=== PATIENT | female | born 1975 | race African-American/Black ===

== ENCOUNTER 2018-03-28 14:31 | Emergency (ER) | payer BC ==
[2018-03-28 14:55] VITALS: BP 143/107
--- NOTE | 2018-03-29 05:18 | EKG REPORT ---
SEVERITY:- ABNORMAL ECG - SINUS RHYTHM LEFT ATRIAL ABNORMALITY : Confirmed by: Merlin Ochoa 29-Mar-2018 05:17:51
== END 2018-03-28 16:03 | disposition left against medical advice (07) ==
LOC: ER 14:31
DX: R42 Dizziness and giddiness (principal); Z53.21 Procedure and treatment not carried out due to patient leaving prior to being seen by health care provider; R07.9 Chest pain, unspecified
CPT/HCPCS: 93005; 93010

== ENCOUNTER 2018-04-22 21:16 | Emergency (ER) | payer OTHER, BC ==
[2018-04-22] MEDS ORDERED: LIDOCAINE 5% (700 MG) TRANSDERMAL ADH..PATCH TP ONE (23:20)
[2018-04-23] MEDS ORDERED: KETOROLAC TROMETHAMINE 60 MG/2 ML SDV IM ONE
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
[2018-04-23 00:57] VITALS: BP 151/90
== END 2018-04-23 00:47 | disposition home or self-care (01) ==
LOC: ER 21:16
DX: M54.41 Lumbago with sciatica, right side (principal); M79.604 Pain in right leg; I10 Essential (primary) hypertension; V87.7XXA Person injured in collision between other specified motor vehicles (traffic), initial encounter; Z79.899 Other long term (current) drug therapy
CPT/HCPCS: 99283; 96372; J1885

== ENCOUNTER 2018-07-14 01:48 | Emergency (ER) | payer BC, OTHER ==
--- NOTE | 2018-07-14 05:06 | ER Document Report ---
ED General - General Chief Complaint: Flu Symptoms Stated Complaint: FEVER/NECK AND LEG PAIN Time Seen by Provider: 07/14/18 04:34 Notes: Patient is a 42-year-old female who presents to the emergency department with a chief complaint of a sore throat, fever of 102.5, aching legs, headache, congestion. Her symptoms started yesterday. She states that she was visited by her nephews and they were sick. She denies difficulty breathing, shortness of breath, nausea, vomiting, or diarrhea. TRAVEL OUTSIDE OF THE [place] IN LAST 30 DAYS: No - Related Data Allergies/Adverse Reactions: latex [Latex] Allergy (Intermediate, Verified 02/03/13 13:12) rash z-pack Allergy (Severe, Uncoded 02/03/13 13:12) very sick Past Medical History - Social History Smoking Status: Unknown if Ever Smoked Family History: Reviewed & Not Pertinent Patient has suicidal ideation: No Patient has homicidal ideation: No - Past Medical History Cardiac Medical History: Reports: Hx Hypertension - takes lisinopril Denies: Hx Coronary Artery Disease, Hx Heart Attack Pulmonary Medical History: Denies: Hx Asthma, Hx Bronchitis, Hx COPD, Hx Pneumonia Neurological Medical History: Denies: Hx Cerebrovascular Accident, Hx Seizures Renal/ Medical History: Denies: Hx Peritoneal Dialysis Musculoskeletal Medical History: Denies Hx Arthritis Past Surgical History: Reports: Hx Tubal Ligation. Denies: Hx Hysterectomy - Immunizations Hx Diphtheria, Pertussis, Tetanus Vaccination: Yes Review of Systems - Review of Systems Notes: REVIEW OF SYSTEMS: CONSTITUTIONAL : See HPI EENT: See HPI CARDIOVASCULAR: Denies chest pain. RESPIRATORY: Denies shortness of breath, cough, congestion, difficulty breathing, or wheezing. GASTROINTESTINAL: Denies nausea, vomiting, and diarrhea. Denies abdominal pain. Denies constipation. GENITOURINARY: Denies difficulty urinating, burning, blood in urine, urgency or frequency. MUSCULOSKELETAL: Denies neck and back pain. Denies joint pain or swelling. SKIN: Denies rash, itchiness, or lesions HEMATOLOGIC : Denies easy bruising or bleeding. LYMPHATIC: Denies swollen, painful, enlarged glands. NEUROLOGICAL: Denies no numbness or tingling denies weakness. Denies headache. Denies altered mental status. Denies alteration in speech. PSYCHIATRIC: Denies stress, anxiety, alteration in sleep patterns, or depression. All other systems reviewed and negative. Physical Exam - Vital signs Vitals: Temp Pulse Resp BP Pulse Ox 100.3 F 104 H 16 126/78 H 100 07/14/18 02:36 07/14/18 02:36 07/14/18 02:36 07/14/18 02:36 07/14/18 02:36 - Notes Notes: PHYSICAL EXAMINATION: GENERAL: Appears well, healthy, well-nourished, no acute distress. HEAD: Normocephalic, atraumatic. EYES: PERRL, conjunctiva normal, all extraocular movements intact, sclera nonicteric ENT: Moist mucous membranes. Tonsillar exudate noted NECK: Supple, no noticeable swelling, redness, rash. Normal range of motion. Anterior cervical lymphadenopathy noted. LUNGS: Equal breath sounds bilaterally and clear to auscultation. No wheezes rales or rhonchi. CARDIOVASCULAR: S1-S2, regular rate, regular rhythm. Radial pulses 2+, normal. ABDOMEN: Normoactive bowel sounds. Soft, nontender, no guarding, no rebound tenderness, and no masses palpated. EXTREMITIES: Normal strength and range of motion, no pitting or edema. No cyanosis. NEUROLOGICAL: Moves all extremities upon command. Strength 5/5 in all extremities. PSYCH: Normal mood, normal affect. SKIN: Warm, dry. No rash, lesions, ulcerations noted. Normal skin turgor. Course - Re-evaluation Re-evalutation: 07/14/18 05:06 Patient will be tested for the flu, and a rapid strep will be done. I do not suspect peritonsillar abscess, Sacha's angina, or any life-threatening etiologies at this time. 07/14/18 05:55 The patient has a negative strep test, she has tonsillar exudate and anterior cervical lymphadenopathy. She also has a fever, which makes me suspect she has a pharyngeal infection. She will be started on amoxicillin. Verbal discharge instructions were given to the patient. They verbalized understanding. They are stable for discharge. - Vital Signs Vital signs: Temp Pulse Resp BP Pulse Ox 98.6 F 86 18 110/71 100 07/14/18 05:45 07/14/18 05:45 07/14/18 05:45 07/14/18 05:45 07/14/18 05:45 Discharge - Discharge Clinical Impression: Pharyngitis Qualifiers: Pharyngitis/tonsillitis etiology: unspecified etiology Qualified Code(s): J02.9 - Acute pharyngitis, unspecified Condition: Stable Disposition: HOME, SELF-CARE Additional Instructions: You were seen in the emergency department today for a fever, sore throat, headache, congestion, and body aches. Your flu test is negative. Although your strep test is negative, you do have signs of pharyngitis. He will be started on amoxicillin for your pharyngitis. Please take your antibiotics as prescribed. Even if you feel better, please continue to take your antibiotics. You may take 1000 mg of Tylenol and 600 mg of Motrin every 6 hours as needed for the pain or fever. You follow-up with your primary care provider in 3-5 days. If you develop shortness of breath, or any symptoms that are worrisome to you, please return to the emergency department. Prescriptions: Amoxicillin Trihydrate [Amoxil 875 mg Tablet] 1 tab PO BID #20 tablet Forms: Return to Work Referrals: SHERINE CANCHOLA FNP-C [Primary Care Provider] - Follow up as needed
[2018-07-14 05:36] LABS: A TYPE INFLUENZA AG NEGATIVE (NEGATIVE); B INFLUENZA AG NEGATIVE (NEGATIVE)
[2018-07-14 05:46] VITALS: BP 110/71
== END 2018-07-14 06:15 | disposition home or self-care (01) ==
LOC: ER 01:48
DX: J02.9 Acute pharyngitis, unspecified (principal); R50.9 Fever, unspecified; M79.604 Pain in right leg; M79.605 Pain in left leg; R51 Headache; R09.81 Nasal congestion; I10 Essential (primary) hypertension; Z79.899 Other long term (current) drug therapy
CPT/HCPCS: 87070; 87804; 87880; 99282

== ENCOUNTER 2019-05-21 03:08 | Emergency (ER) | payer BC, OTHER ==
[2019-05-21] MEDS ORDERED: DIPHENHYDRAMINE HCL 25 MG CAPSULE PO ONE (03:46)
[2019-05-21] MEDS ORDERED: PREDNISONE 20 MG TABLET PO ONE (03:46)
--- NOTE | 2019-05-21 03:54 | ER Document Report ---
ED General - General Chief Complaint: Skin Problem Stated Complaint: FACIAL PAIN Time Seen by Provider: 05/21/19 03:34 Primary Care Provider: SHERINE CANCHOLA FNP-C [Primary Care Provider] - Follow up in 3-5 days Notes: 43 y/o female presents with eye burning/watering and facial skin burning that started 1 hour prior to arrival. Pt states this woke her up from sleep. Pt was started on Tacrolimus to her face recently by her oxygen furnace operator for eczema and used it on her face for first time tonight. Pt states she has used this on other body parts previously without any adverse reaction. Pt states this is the only n ew medications she has taken except one dose of Diflucan which she has taken previously without difficulty. Pt denies dyspnea, lip/tongue/throat swelling, or any facial swelling. Pt states she immediately washed her face with mild improvement in symptoms. TRAVEL OUTSIDE OF THE [place] IN LAST 30 DAYS: No - Related Data Allergies/Adverse Reactions: latex [Latex] Allergy (Intermediate, Verified 05/21/19 03:11) rash z-pack Allergy (Severe, Uncoded 05/21/19 03:11) very sick Home Medications: Tacrolimus ointment Past Medical History - Social History Smoking Status: Never Smoker Frequency of alcohol use: None Drug Abuse: None Family History: Reviewed & Not Pertinent Patient has suicidal ideation: No Patient has homicidal ideation: No - Past Medical History Cardiac Medical History: Reports: Hx Hypertension - takes lisinopril Denies: Hx Coronary Artery Disease, Hx Heart Attack Pulmonary Medical History: Denies: Hx Asthma, Hx Bronchitis, Hx COPD, Hx Pneumonia Neurological Medical History: Denies: Hx Cerebrovascular Accident, Hx Seizures Renal/ Medical History: Denies: Hx Peritoneal Dialysis Musculoskeletal Medical History: Denies Hx Arthritis Past Surgical History: Reports: Hx Tubal Ligation. Denies: Hx Hysterectomy - Immunizations Hx Diphtheria, Pertussis, Tetanus Vaccination: Yes Review of Systems - Review of Systems Notes: Constitutional: Negative for fever. HENT: Negative for sore throat. Eyes: Negative for visual changes. Cardiovascular: Negative for chest pain. Respiratory: Negative for shortness of breath. Gastrointestinal: Negative for abdominal pain, vomiting or diarrhea. Genitourinary: Negative for dysuria. Musculoskeletal: Negative for back pain. Skin: Positive for rash. Neurological: Negative for headaches, weakness or numbness. 10 point ROS negative except as marked above and in HPI. Physical Exam - Vital signs Vitals: Temp Pulse Resp BP Pulse Ox 97.8 F 71 20 112/80 98 05/21/19 03:14 05/21/19 03:14 05/21/19 03:14 05/21/19 03:14 05/21/19 03:14 - Notes Notes: GENERAL: Well-appearing, well-nourished and in no acute distress. HEAD: Atraumatic, normocephalic. EYES: Extraocular movements intact, sclera anicteric, conjunctiva are normal. ENT: No tongue/throat/lip swelling. No muffled voice. Phonation clear. NECK: Normal range of motion, supple without lymphadenopathy or JVD. No stridor. LUNGS: Breath sounds clear to auscultation bilaterally and equal. No wheezes rales or rhonchi. HEART: Regular rate and rhythm without murmurs, rubs or gallops. EXTREMITIES: Normal range of motion, no pitting or edema. No clubbing or cyanosis. NEUROLOGICAL: Cranial nerves II through XII grossly intact. Normal speech, normal gait. PSYCH: Normal mood, normal affect. SKIN: Warm, Dry, normal turgor, no rashes or lesions noted. Course - Re-evaluation Re-evalutation: 05/21/19 43 y/o female presents for eye burning/watering and skin burning that started 1 hour [employer]ENTALLY [employer] TE[employer]. Pt used Tacrolimus for first time on face tonight. No lip/tongue/throat swelling or dyspnea. No stridor. Lungs clear to auscultation bilaterally. Pt given 1 dose of prednisone and benadryl in ER with prescription for prednisone and instructed to take anti-histamine. Return precaution given/discussed. Pt voices understanding and agrees with plan of care. - Vital Signs Vital signs: Temp Pulse Resp BP Pulse Ox 97.8 F 71 20 112/80 98 05/21/19 03:14 05/21/19 03:14 05/21/19 03:14 05/21/19 03:14 05/21/19 03:14 Discharge - Discharge Clinical Impression: Allergic reaction caused by a drug Qualifiers: Encounter type: initial encounter Qualified Code(s): T78.40XA - Allergy, unspecified, initial encounter Condition: Stable Disposition: HOME, SELF-CARE Instructions: Acute Allergic Reaction to Drugs ([facility]) Additional Instructions: Please stop using Tacrolimus. Call your oxygen furnace operator in 3 days. Take prednisone as prescribed and finish all doses. Take anti-histamine, such as Claritin/Zyrtec/Daina/Benadryl as needed for symptoms. Return to ER for any worsening symptoms, including shortness of breath, lip/tongue/throat swelling, facial swelling, or any other symptoms that are concerning to you. Prescriptions: Prednisone [Deltasone 20 mg Tablet] 1 tab PO BID 5 Days #10 tablet Referrals: SHERINE CANCHOLA, MELISSA-C [Primary Care Provider] - Follow up in 3-5 days
[2019-05-21 04:03] VITALS: BP 108/65
== END 2019-05-21 04:02 | disposition home or self-care (01) ==
LOC: ER 03:08
DX: R51 Headache (principal); T45.1X5A Adverse effect of antineoplastic and immunosuppressive drugs, initial encounter; X58.XXXA Exposure to other specified factors, initial encounter; I10 Essential (primary) hypertension; Z91.040 Latex allergy status; Z88.3 Allergy status to other anti-infective agents; Z98.51 Tubal ligation status
CPT/HCPCS: 99283; J7512

== ENCOUNTER 2019-11-26 19:38 | Emergency (ER) | payer BC ==
--- NOTE | 2019-11-26 20:50 | ER Document Report ---
ED General - General Chief Complaint: Anxiety Stated Complaint: ANXIETY Time Seen by Provider: 11/26/19 20:39 Mode of Arrival: Ambulatory Information source: Patient Notes: 4-year-old female presented to ED for complaint of OCD anxiety and panic attack. She states she has a psychiatrist and a therapist. She states she is on THC for her OCD. She states she normally takes other medications as well. She does have a history of OCD anxiety depression reflux and high blood pressure. She states she does have an appointment on Thursday he just needs something to get her through till Thursday. I have spoke with Abiel have a mental health worker she will come and speak with the patient and make recommendations. TRAVEL OUTSIDE OF THE [place] IN LAST 30 DAYS: No - HPI Onset: Other - Several days Onset/Duration: Gradual, Worse Quality of pain: No pain Severity: None Pain Level: Denies Associated symptoms: Other - Panic attack Exacerbated by: Denies Relieved by: Denies Similar symptoms previously: Yes Recently seen / treated by doctor: No - Related Data Allergies/Adverse Reactions: latex [Latex] Allergy (Intermediate, Verified 05/21/19 03:11) rash z-pack Allergy (Severe, Uncoded 05/21/19 03:11) very sick Past Medical History - General Information source: Patient - Social History Smoking Status: Never Smoker Frequency of alcohol use: Social Drug Abuse: None - Uses Marinol Lives with: Family Family History: Reviewed & Not Pertinent Patient has suicidal ideation: No Patient has homicidal ideation: No - Past Medical History Cardiac Medical History: Reports: Hx Hypertension - takes lisinopril Pulmonary Medical History: Reports: None EENT Medical History: Reports: None Neurological Medical History: Reports: None Endocrine Medical History: Reports: None Renal/ Medical History: Reports: None Malignancy Medical History: Reports: None GI Medical History: Reports: Hx Gastroesophageal Reflux Disease Musculoskeletal Medical History: Reports None Skin Medical History: Reports None Psychiatric Medical History: Reports: Hx Anxiety - Panic attacks, Hx Depression, Hx Obsessive Compulsive Disorder Infectious Medical History: Reports: None Past Surgical History: Reports: Hx Tubal Ligation - Immunizations Hx Diphtheria, Pertussis, Tetanus Vaccination: Yes Review of Systems - Review of Systems Constitutional: No symptoms reported EENT: No symptoms reported Cardiovascular: No symptoms reported Respiratory: No symptoms reported Gastrointestinal: No symptoms reported Genitourinary: No symptoms reported Female Genitourinary: No symptoms reported Musculoskeletal: No symptoms reported Skin: No symptoms reported Hematologic/Lymphatic: No symptoms reported Neurological/Psychological: Anxiety, Other - panic attack -: Yes All other systems reviewed and negative Physical Exam - Vital signs Vitals: Temp Pulse Resp BP Pulse Ox 98.4 F 85 17 109/79 100 11/26/19 20:28 11/26/19 20:28 11/26/19 20:28 11/26/19 20:28 11/26/19 20:28 Interpretation: Normal - General General appearance: Appears well, Alert - HEENT Head: Normocephalic, Atraumatic Eyes: Normal Pupils: PERRL - Respiratory Respiratory status: No respiratory distress Chest status: Nontender Breath sounds: Normal Chest palpation: Normal - Cardiovascular Rhythm: Regular Heart sounds: Normal auscultation Murmur: No - Abdominal Inspection: Normal Distension: No distension Bowel sounds: Normal Tenderness: Nontender Organomegaly: No organomegaly - Back Back: Normal, Nontender - Extremities General upper extremity: Normal inspection, Nontender, Normal color, Normal ROM, Normal temperature General lower extremity: Normal inspection, Nontender, Normal color, Normal ROM, Normal temperature, Normal weight bearing. No: Lebron's sign - Neurological Neuro grossly intact: Yes Cognition: Normal Orientation: AAOx4 Manisha Coma Scale Eye Opening: Spontaneous Manisha Coma Scale Verbal: Oriented [place] Coma Scale Motor: Obeys Commands [place] Coma Scale Total: 15 Speech: Normal Motor strength normal: LUE, RUE, LLE, RLE Sensory: Normal - Psychological Associated symptoms: Normal mood, Anxious, Other - Panic attack - Skin Skin Temperature: Warm Skin Moisture: Dry Skin Color: Normal Course - Re-evaluation Re-evalutation: 11/26/19 21:59 Consulted Abiel mental health worker she called Dr. Huddleston and get medication recommendation. Recommendation was to give the patient 50 mg of Thorazine tonight and give her a prescription for 1 for tomorrow and have her follow-up with her psychiatrist and therapist on Thursday. Patient states she has an appointment on Thursday and she will be able to follow-up. Patient verbalized understanding and agreement with treatment plans and patient will be discharged home after medication. She is riding home with her daughter. - Vital Signs Vital signs: Temp Pulse Resp BP Pulse Ox 98.4 F 85 17 109/79 100 11/26/19 20:40 11/26/19 20:28 11/26/19 20:28 11/26/19 20:28 11/26/19 20:28 Discharge - Discharge Clinical Impression: Anxiety, Panic attack Condition: Stable Disposition: HOME, SELF-CARE Additional Instructions: Anxiety The physician feels that some of your health problems are being caused by anxiety. Anxiety affects your health in many ways. Anxiety alone can cause palpitations, sweats, chest pains, abdominal pains, shortness of breath, and headaches. It contributes to ulcer disease, high blood pressure, irritable bowel syndrome, and has been shown to cause flare-ups of many other diseases. Anxiety is not a simple disorder to treat. If the anxiety is due to recent life stresses, you may simply need time to "work through" the changes. If the anxiety is due to an underlying unhappiness with yourself or due to psychiatric disturbance, professional help will be needed. Your physician can refer you for further help if needed. Anti-anxiety medication is occasionally given if the stress is acute or if you are having trouble sleeping. Chronic or frequent use of these medications is not a good idea because the body becomes reliant on it, preventing you from dealing with life's normal stresses. Panic Attack The cause of panic attacks is unknown. Symptoms can include chest pain, shortness of breath, palpitations, sweats, and a sense of smothering or impending doom. In time, the panic attacks can lead to generalized anxiety and phobias. Because the symptoms can mimic heart attack, pulmonary embolism, and other serious diseases, the physician has evaluated you for these conditions. There is no evidence of a serious problem. An acute panic attack usually goes away by itself without treatment. A severe attack can be treated with medicine to calm you. Long-term, antidepressant medicines may help prevent attacks. Counselling can also be very beneficial in dealing with panic attacks. Panic attacks are less likely if you are getting regular exercise, proper diet, and plenty of sleep. It's normal for panic attacks to cause many frightening symptoms. However, you should call or return if your symptoms change significantly or if you are worsening. You were treated today with antipsychotic medicine Thorazine. You were given 50 mg to help with your anxiety tonight. Given a prescription for 1 pill for tomorrow night and then you will follow-up with your primary care on Thursday as scheduled for further treatment. FOLLOW-UP CARE: If you have been referred to a physician for follow-up care, call the physicians office for an appointment as you were instructed or within the next two days. If you experience worsening or a significant change in your symptoms, notify the physician immediately or return to the Emergency Department at any time for re-evaluation. Prescriptions: Chlorpromazine HCl [Thorazine 50 mg Tablet] 50 mg PO QHS #1 tablet
[2019-11-26] MEDS ORDERED: CHLORPROMAZINE HCL 50 MG TABLET PO ONE (21:46)
--- NOTE | 2019-11-26 22:03 | PSYCHOLOGICAL NOTE ---
Psych Note - Psych Note Date seen by psych provider: 11/26/19 Time seen by psych provider: 21:02 Psych Note: Reason For Consult:Anxiety Patient discloses that she has been doing well for a very long time but noticed within the last week she has been struggling significantly. She reports that she has anxiety and OCD. At times her OCD becomes so difficult that she is unable to drive because she will drive in circles for an hour. 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 She states that working has always been very important to her however the last 2 days that she struggled to even get online; today she did not even work at all. Patient states that she does have an appointment on Thursday with her provider however her family felt she was progressively getting worse and wanted her to be seen by someone immediately. She reports that she is unsure what can be done to assist her however states that if she could just get some sleep she feels that that could help her. Patient discusses the possibility of her OCD flaring from the use of reading articles on the Internet about COVID. She reports that while she is not "a germ phobia" she does tend to clean a lot because she does not like dirt or germs. Patient is alert and orientated to person, place, time and circumstance. Mood is anxious with congruent affect. She is well groomed with hair and nails done. She demonstrates psychomotor agitation with wring her hands. Patient denies suicidal and homicidal ideation. Delusions are absent and behaviors congruent with an intact reality based presentation ie organized and linear thought proce ss. Eye contact is well-maintained. Conversational speech is within normal rate, tone and prosody. Intellectual abilities appear to be within the average to high average range. Attention and concentration are fair. Insight, judgment, impulse control are fair. Medication recommendations per [facility]'s contracted psychiatrist Dr. Bienvenido SANCHEZ are as follows Thorazine 50mg PO once with one day script Impression\\plan:Patient is cleared from acute psychiatric services. Patient reports she has an appointment with her outpatient mental health provider on Thursday however she has not been sleeping and anxiety has significantly impaired her ability for daily living. Patient states she has not been eating and has noticed her OCD traits have significantly increased. Patient demonstrates good insight and judgment and requesting assistance. Patient denies any thoughts of wanting to harm herself or others. Patient is not demonstrating any behaviors of responding to internal stimuli. Medication recommendations have been provided. Patient is recommended to follow-up with her outpatient mental health provider on Thursday. Dr. Huddleston was consulted to care management of this patient; attending physicians in agreement with recommendations and disposition.
[2019-11-26 22:04] VITALS: BP 110/88
== END 2019-11-26 22:12 | disposition home or self-care (01) ==
LOC: ER 19:38
DX: F41.9 Anxiety disorder, unspecified (principal); F41.0 Panic disorder [episodic paroxysmal anxiety]; F42.9 Obsessive-compulsive disorder, unspecified; F32.9 Major depressive disorder, single episode, unspecified; F12.90 Cannabis use, unspecified, uncomplicated; Z88.8 Allergy status to other drugs, medicaments and biological substances; I10 Essential (primary) hypertension; Z79.899 Other long term (current) drug therapy
CPT/HCPCS: 99284; J3490

== ENCOUNTER 2020-07-20 16:11 | Emergency (ER) | payer BC ==
[2020-07-20 16:26] VITALS: BP 110/69
--- NOTE | 2020-07-20 17:24 | ER Document Report ---
ED Medical Screen (RME) - General Chief Complaint: Chest Pain Stated Complaint: CHEST PAIN,LEFT ARM PAIN Time Seen by Provider: 07/20/20 17:15 Notes: HPI: 44-year-old female with history of hypertension and reflux presenting for 1.5 weeks of intermittent heaviness in the chest that occurs perhaps once per day with some radiation of discomfort into the left shoulder. No radiation into the back or neck. Patient also reports an intermittent fluttering sensation in the chest that may last for several seconds at a time and does make her short of breath when it occurs. She feels like it is irregular. Patient states the chest heaviness may last for up to 30 minutes at a time. No prior history of anything similar. Patient has never had a cardiac work-up previously no family history of early coronary artery disease. She does state that she has a small murmur PHYSICAL EXAMINATION: There is a 1/6 systolic murmur. Regular rate and rhythm. EKG normal sinus rhythm without ectopy. Lung sounds are clear to auscultation. I have greeted and performed a rapid initial assessment of this patient. A comprehensive ED assessment and evaluation of the patient, analysis of test results and completion of medical decision making process will be conducted by an additional ED providers. Please note that clinical decision making for this patient was made during the 2019 pandemic of novel coronavirus which caused a significant strain on the healthcare system including at this particular facility. Criteria for admission discharge and level of care decisions as well as treatment decisions have necessarily changed TRAVEL OUTSIDE OF THE [place] IN LAST 30 DAYS: No - Related Data Allergies/Adverse Reactions: latex [Latex] Allergy (Intermediate, Verified 07/20/20 17:13) rash azithromycin [From Zithromax] Allergy (Verified 07/20/20 17:13) Past Medical History - Social History Chew tobacco use (# tins/day): No Frequency of alcohol use: Occasional Drug Abuse: None - Past Medical History Cardiac Medical History: Reports: Hx Hypertension - takes lisinopril GI Medical History: Reports: Hx Gastroesophageal Reflux Disease Psychiatric Medical History: Reports: Hx Anxiety - Panic attacks, Hx Depression, Hx Obsessive Compulsive Disorder Past Surgical History: Reports: Hx Tubal Ligation - Immunizations Hx Diphtheria, Pertussis, Tetanus Vaccination: Yes Physical Exam - Vital signs Vitals: Temp Pulse Resp BP Pulse Ox 98.3 F 81 18 110/69 98 07/20/20 16:24 07/20/20 16:24 07/20/20 16:24 07/20/20 16:24 07/20/20 16:24 Course - Vital Signs Vital signs: Temp Pulse Resp BP Pulse Ox 98.3 F 81 18 110/69 98 07/20/20 16:24 07/20/20 16:24 07/20/20 16:24 07/20/20 16:24 07/20/20 16:24
[2020-07-20 18:07] LABS: ABSOLUTE BASOPHILS # (AUTO) 0.1 10^3/uL (0.0-0.2); ABSOLUTE EOSINOPHILS # (AUTO) 0.2 10^3/uL (0.0-0.6); ABSOLUTE LYMPHOCYTES (AUTO) 2.3 10^3/uL (0.5-4.7); ABSOLUTE MONOCYTES (AUTO) 0.5 10^3/uL (0.1-1.4); ABSOLUTE NEUT (AUTO) 3.2 10^3/uL (1.7-8.2); EOSINOPHILS % (AUTO) 3.4 % (0-6); HEMATOCRIT 38.3 % (36.0-47.0); HEMOGLOBIN 12.6 g/dL (12.0-15.5); LYMPHOCYTES % (AUTO) 36.2 % (13-45); MEAN CORPUSCULAR HEMOGLOBIN 28.4 pg (27.0-33.4); MEAN CORPUSCULAR HGB CONC 32.9 g/dL (32.0-36.0); MEAN CORPUSCULAR VOLUME 86 fl (80-97); PLATELET COUNT 390 10^3/uL (150-450); RED BLOOD COUNT 4.43 10^6/uL (3.72-5.28); RED CELL DISTRIBUTION WIDTH 13.5 % (11.5-14.0); SEGMENTED NEUTROPHILS % (AUTO) 51.4 % (42-78); TOTAL CELLS COUNTED % (AUTO) 100 %; WHITE BLOOD COUNT 6.3 10^3/uL (4.0-10.5)
[2020-07-20 18:28] LABS: ALKALINE PHOSPHATASE 93 U/L (38-126); ANION GAP 8 (5-19); ASPARTATE AMINO TRANSFERASE 18 U/L (14-36); BILIRUBIN,DIRECT 0.3 mg/dL (0.0-0.4); BILIRUBIN,TOTAL 0.4 mg/dL (0.2-1.3); BLOOD UREA NITROGEN 11 mg/dL (7-20); CALCIUM 9.3 mg/dL (8.4-10.2); CARBON DIOXIDE 28 mmol/L (22-30); CHLORIDE 101 mmol/L (98-107); GLUCOSE 113 mg/dL (75-110); POTASSIUM 3.8 mmol/L (3.6-5.0); TOTAL PROTEIN 7.4 g/dL (6.3-8.2)
--- NOTE | 2020-07-20 19:12 | RADIOLOGY REPORT (SQ) ---
EXAM DESCRIPTION: CHEST SINGLE VIEW IMAGES COMPLETED DATE/TIME: 07/20/2020 5:19 pm REASON FOR STUDY: chest pain. COMPARISON: None. EXAM PARAMETERS: NUMBER OF VIEWS: One view. TECHNIQUE: Single frontal radiographic view of the chest acquired. RADIATION DOSE: NA LIMITATIONS: None. FINDINGS: LUNGS AND PLEURA: No opacities, masses or pneumothorax. No pleural effusion. MEDIASTINUM AND HILAR STRUCTURES: No masses. Contour normal. HEART AND VASCULAR STRUCTURES: Heart normal in size. Normal vasculature. BONES: No acute findings. HARDWARE: None in the chest. OTHER: No other significant finding. IMPRESSION: NO ACUTE RADIOGRAPHIC FINDING IN THE CHEST. TECHNICAL DOCUMENTATION: JOB ID: [id number] 2010 [employer]- All Rights Reserved Reading location - IP/workstation name: [email or web address]
--- NOTE | 2020-07-21 23:04 | EKG REPORT ---
SEVERITY:- NORMAL ECG - SINUS RHYTHM : Confirmed by: Merlin Ochoa 21-Jul-2020 23:03:19
== END 2020-07-20 20:44 | disposition left against medical advice (07) ==
LOC: ER 16:11
DX: R09.89 Other specified symptoms and signs involving the circulatory and respiratory systems (principal); R06.02 Shortness of breath; R01.1 Cardiac murmur, unspecified; Z91.040 Latex allergy status; Z88.1 Allergy status to other antibiotic agents; Z53.20 Procedure and treatment not carried out because of patient's decision for unspecified reasons
CPT/HCPCS: 36415; 71045; 80053; 84484; 85025; 93005; 93010; 99281